=== PATIENT | male | born 1960 | race Caucasian/White ===

== ENCOUNTER 2018-02-10 19:19 | Observation (INO) ==
--- NOTE | 2018-02-10 19:28 | Emergency Department Report ---
General Adult HPI - General Stated complaint: soa, chest tightness Time Seen by Provider: 02/10/18 19:26 Source: patient Mode of arrival: ambulatory Limitations: no limitations - History of Present Illness HPI narrative: 57-year-old male presents to the emergency department with a chief complaint of feeling like his heart is fluttering in his throat. He noted onset of symptoms approximately 1.5 hours prior to arrival to the emergency department today while outside setting up a sprinkler system. He denies any true chest pain or dyspnea. He does note feeling like his heart is beating quickly. He was at home when his symptoms began. Symptoms have been persistent in nature since onset. No other complaints or associated symptoms at this time. He does not note any exacerbating or remitting factors. Patient has no personal history of cardiac issues. - Related Data Home Medications Medication Instructions Recorded Confirmed Allopurinol [Zyloprim] 300 mg PO DAILY 02/10/18 02/10/18 Ascorbic Acid [Vitamin C] 500 mg PO DAILY 02/10/18 02/10/18 Aspirin [Adult Aspirin] 81 mg PO DAILY 02/10/18 02/10/18 Garlic [Odorless Garlic] 300 mg PO DAILY 02/10/18 02/10/18 Magnesium Oxide [Magnesium] 400 mg PO DAILY 02/10/18 02/10/18 Multi-Vitamin Plain [Theragran] 1 tab PO DAILY 02/10/18 02/10/18 Biola-3/Dha/Epa/Fish Oil [Fish Oil 1 cap PO DAILY 02/10/18 02/10/18 1,000 mg Softgel] Potassium 99 mg PO DAILY 02/10/18 02/10/18 Saw Cactus 160 mg PO DAILY 02/10/18 02/10/18 Triamterene/Hydrochlorothiazid 1 cap PO DAILY 02/10/18 02/10/18 [Triamterene-Hctz 37.5-25 mg Cp] Allergies Allergy/AdvReac Type Severity Reaction Status Date / Time No Known Drug Allergies Allergy Unknown Verified 02/10/18 20:30 Review of Systems Constitutional: Denies: fever, chills Eyes: Denies: eye pain, vision change ENT: Denies: ear pain, throat pain Cardiovascular: Reports: palpitations. Denies: chest pain Respiratory: Denies: cough, dyspnea Gastrointestinal: Denies: abdominal pain, nausea, vomiting, diarrhea Genitourinary: Denies: urgency, dysuria Musculoskeletal: Denies: back pain, arthralgia Integumentary: Denies: erythema, rash Neurological: Denies: headache, numbness Psychiatric: Denies: anxiety, depression Endocrine: Denies: polydipsia, polyuria Hematological/Lymphatic: Denies: easy bleeding, easy bruising Allergic/Immunologic: Denies: facial swelling, urticaria PFSH HTN Surgical History: Colonoscopy Family History: Reviewed and Noncontributory. - Social History Smoking status: Never smoker Substance use type: does not use Alcohol intake frequency: does not drink Physical Exam - Limitations Limitations: no limitations - General General appearance: alert, in no apparent distress - Normal Exams: Head:: Normocephalic without trauma Eyes:: Pupils are PERRLA w/ EOMI, No scleral icterus, irritation, or foreign bodies noted ENMT:: No facial trauma, nasal exudates, pharyngeal erythema, or exudates are noted Dental: No fractured, loose, or missing teeth noted Neck:: Full range of motion, without adenopathy, JVD, bruits or thyromegaly Chest/Respirations:: Clear all hogan, with good airflow, and symmetry bilaterally Cardiovascular:: Regular rate and rhythm (Rate - 140 bpm. ), without murmur or gallop, Pulses 2+ all extremities, capillary refill, <2 seconds all extremities Abdomen:: Bowel sounds positive, soft, non-tender, non-distended, no hepatosplenomegaly, masses or bruits noted Lymphatic:: No lymphadenopathy, or lymphedema noted Musculoskeletal:: No tenderness, or deformity noted, good range of motion, all extremities Integumentary:: No rashes, hives, or bruising noted, hair and nails, without abnormality Neurological:: Patient is alert, and oriented, cranial nerves, motor/sensory/ cerebellar, exams w/o gross deficits, to observation Psychiatric:: Patient exhibits, appropriate attention, emotion and affect Medical Decision Making - [facility] Narrative Medical decision making narrative: Labs/imaging were discussed in detail with the patient and family and questions are answered. Patient was given 500 mL of normal saline intravenously times one. Patient was given a total of 25 mg of Cardizem intravenously times one in the emergency department and a Cardizem drip was initiated at 7.5 mg and titrated to effect. Patient was discussed in detail with Dr. Smith of cardiology who agrees to admit the patient to his service for further evaluation and treatment. Patient did take 1 baby aspirin prior to arrival to the emergency department and was given 243 mg of aspirin in the emergency department. He was given Lovenox 1 mg/kg subcutaneously the 1 in the emergency department. Patient is admitted to the CCU to the service of cardiology for further evaluation and treatment. Patient and family are in agreement with the current plan of management. No further orders from accepting physician who is in agreement with the current plan of management. - Differential Diagnosis Aflutter, Afib, Metabolic disorder, Thyroid disorder - Lab Data Result diagrams: 02/10/18 19:35 02/10/18 19:35 - Radiology Data CXR - no obvious acute processes. - EKG Data EKG #1 EKG results narrative: Atrial flutter. 144 bpm. No STEMI. Critical Care Time Critical Care Time: Yes Total Critical Care Time: 47 Attestation: 47 minutes of critical care time was assessed to the patient as the patient was initiated on an anti-arrhythmic and anti-arrhythmic drip (Cardiazem). Patient required repeated assessment at the bedside, complex medical decision making, and had potential for decompensation. Critical care time was spent treating the patient, documenting the medical record, updating family, and making telephone calls on the patient's behalf. Patient was admitted to the ICU for further evaluation and treatment. Disposition Clinical Impression: Atrial flutter Qualifiers: Atrial flutter type: unspecified Qualified Code(s): I48.92 - Unspecified atrial flutter Disposition: 02 To [facility] [place] Acute Care Condition: Stable Time of Disposition: 08:15 (Admit. Dr. Smith.) - Seen By: physician
--- OUTSIDE RECORDS SUMMARY | 2018-02-10 19:32 | External Medical Summary | Referral Summary ---
:1960 Author Organization [facility] [place] [id number] Care Team Providers Name Role Phone Andrew Marquez Primary Care Physician Encounter Date(s): 07/02/16 - 07/02/16 [facility] [place] [phone] Discharge Diagnosis: Encounter for wellness examination Discharge Diagnosis: Elevated cholesterol Discharge Diagnosis: Hypertension Discharge Diagnosis: Erectile dysfunction Discharge Diagnosis: Obesity Discharge Diagnosis: Tobacco user Discharge Diagnosis: BPH (benign prostatic hyperplasia) Discharge Disposition: 01-Home or Self Care Attending Physician: Andrew Marquez MD Admitting Physician: Andrew Marquez MD Vital Signs Most recent to oldest [Reference Range]: 1 Blood Pressure [90-140/60-90 mmHg] 140/90 mmHg (07/02/16 2:38 PM) Problem List Condition Effective Dates Status Health Status Informant Bunion, left(Confirmed) Active Elevated cholesterol(Confirmed) Active Hypertension(Confirmed) Active Erectile dysfunction(Confirmed) Active BPH (benign prostatic Active hyperplasia)(Confirmed) Obesity(Confirmed) Active patient Chronic venous Active insufficiency(Confirmed) Tobacco user(Confirmed) Active patient Vesicular foot eczema(Confirmed) Active Allergies, Adverse Reactions, Alerts No Known Medication Allergies Medications Aspirin Low Dose mg, Oral, Daily, 0 Refill(s) Start Date: 10/08/14 Status: OrderedCialis 20 mg oral tablet 20 mg 1 tabs, Oral, Daily, as needed for erectile dysfunction, # 6 tabs, 0 Refill(s), Pharmacy: [id number], 1 tabs Oral Daily,PRN:as needed for erectile dysfunction Start Date: 03/28/15 Status: Orderedtriamcinolone 0.1% topical cream 1 anibal, Topical, BID, rash, # 60 g, 1 Refill(s), Pharmacy: [facility] [id number] Start Date: 07/02/16 Status: Orderedtriamterene-hydrochlorothiazide 37.5 mg-25 mg oral tablet 1 tabs, Oral, Daily, # 90 tabs, 1 Refill(s), Pharmacy: [facility] [id number] Start Date: 07/02/16 Stop Date: 12/29/16 Status: Ordered Results Hematology Most recent to oldest [Reference Range]: 1 WBC [4.8-10.8 10*3/uL] 6.0 10*3/uL (07/02/16 3:10 PM) RBC [4.60-6.20] 4.78 (07/02/16 3:10 PM) Hgb [14.0-18.0 gm/dL] 14.3 gm/dL (07/02/16 3:10 PM) Hct [42.0-52.0 %] 42.8 % (07/02/16 3:10 PM) MCV [82.0-99.0 fL] 89.5 fL (07/02/16 3:10 PM) MCH [27.0-32.0 pg] 29.9 pg (07/02/16 3:10 PM) MCHC [32.0-36.0 gm/dL] 33.4 gm/dL (07/02/16 3:10 PM) RDW [11.5-14.5 %] 13.4 % (07/02/16 3:10 PM) Platelet [150-400 10*3/uL] 297 10*3/uL (07/02/16 3:10 PM) MPV [8.8-14.8 fL] 9.9 fL (07/02/16 3:10 PM) Immature Granulocytes [0.0-1.0 %] 0.2 % (07/02/16 3:10 PM) Neutrophils [51-75 %] 52 % (07/02/16 3:10 PM) Lymphocytes [20-46 %] 35 % (07/02/16 3:10 PM) Monocytes [4-11 %] 9 % (07/02/16 3:10 PM) Eosinophils [0-4 %] 3 % (07/02/16 3:10 PM) Basophils [0-2 %] 0 % (07/02/16 3:10 PM) Neutro Absolute [1.90-7.00 10*3] 3.13 10*3 (07/02/16 3:10 PM) Lymph Absolute [0.80-3.30 10*3] 2.10 10*3 (07/02/16 3:10 PM) [place] Absolute [0.30-1.00 10*3] 0.53 10*3 (07/02/16 3:10 PM) Eos Absolute [0.00-0.50 10*3] 0.19 10*3 (07/02/16 3:10 PM) Baso Absolute [0.00-0.20 10*3] 0.02 10*3 (07/02/16 3:10 PM) Chemistry Most recent to oldest [Reference Range]: 1 Sodium Lvl [135-144 mEq/L] 138 mEq/L (07/02/16 3:10 PM) Potassium Lvl [3.5-5.2 mEq/L] 4.0 mEq/L (07/02/16 3:10 PM) Chloride [99-111 mEq/L] 104 mEq/L (07/02/16 3:10 PM) CO2 [23-31 mEq/L] 23 mEq/L (07/02/16 3:10 PM) AGAP [3-20] 11 (07/02/16 3:10 PM) BUN [8-26 mg/dL] 17 mg/dL (07/02/16 3:10 PM) Glucose Lvl [70-99 mg/dL] 131 mg/dL *HI* (07/02/16 3:10 PM) Creatinine Lvl [0.72-1.25 mg/dL] 0.81 mg/dL (07/02/16 3:10 PM) eGFR [>60 mL/min] >60 mL/min 1 (07/02/16 3:10 PM) Calcium Lvl [8.9-10.5 mg/dL] 8.9 mg/dL (07/02/16 3:10 PM) Albumin Lvl [3.5-5.0 gm/dL] 4.1 gm/dL (07/02/16 3:10 PM) Total Protein [6.1-7.7 gm/dL] 6.9 gm/dL (07/02/16 3:10 PM) Globulin [1.8-4.0 gm/dL] 2.8 gm/dL (07/02/16 3:10 PM) ALT [0-55 U/L] 49 U/L (07/02/16 3:10 PM) AST [5-34 U/L] 38 U/L *HI* (07/02/16 3:10 PM) Alk Phos [40-150 U/L] 69 U/L (07/02/16 3:10 PM) Bili Total [0.2-1.2 mg/dL] 0.6 mg/dL (07/02/16 3:10 PM) PSA (wihout Reflex Free) [0.0-3.5 ng/mL] 1.6 ng/mL 2 (07/02/16 3:10 PM) Chol [0-199 mg/dL] 178 mg/dL (07/02/16 3:10 PM) Trig [0-149 mg/dL] 128 mg/dL (07/02/16 3:10 PM) HDL [40-84 mg/dL] 39 mg/dL *LOW* (07/02/16 3:10 PM) LDL [0-130 mg/dL] 113 mg/dL (07/02/16 3:10 PM) VLDL Cholesterol [0-28 mg/dL] 26 mg/dL (07/02/16 3:10 PM) Cardiac Risk [0.0-5.7] 4.6 (07/02/16 3:10 PM) 1Result Comment: Multiply eGFR results by 1.21 for race.2Result Comment: AUA PSA Best Practice Guidelines: Age-Adjusted PSA Values by Ethnic Group Age Range Asians - Caucasians Americans 40-49 0-2.0 0-2.0 0-2.5 50-59 0-3.0 0-4.0 0-3.5 60-69 0-4.0 0-4.5 0-4.5 70-79 0-5.0 0-5.5 0-6.5Urinalysis Most recent to oldest [Reference Range]: 1 UA Color Yellow (07/02/16 4:00 PM) UA Appear Clear (07/02/16 4:00 PM) UA pH [5.0-8.0] 6.5 (07/02/16 4:00 PM) UA Leuk Est [Negative] Negative (07/02/16 4:00 PM) UA Nitrite [Negative] Negative (07/02/16 4:00 PM) UA Protein [Negative] Negative (07/02/16 4:00 PM) UA Glucose [Negative] Negative (07/02/16 4:00 PM) UA Ketones [Negative] Trace *ABN* (07/02/16 4:00 PM) UA Urobilinogen [<1.0 mg/dL] 1.0 mg/dL (07/02/16 4:00 PM) UA Bili [Negative] Negative (07/02/16 4:00 PM) UA Blood [Negative] Negative (07/02/16 4:00 PM) UA Spec Grav [1.003-1.030] 1.018 (07/02/16 4:00 PM) Type Voided (07/02/16 4:00 PM) Immunizations Vaccine Date Refusal Reason hepatitis B pediatric vaccine 06/17/98 hepatitis B pediatric vaccine 02/09/98 influenza virus vaccine, inactivated 05/28/15 influenza virus vaccine, live 07/07/12 pneumococcal 23-polyvalent vaccine 07/07/12 zoster vaccine live 07/07/12 Procedures Procedure Date Related Diagnosis Body Site Colonoscopy and biopsy of colon1 02/01/14 Back Surgery Hernia repair 1tubular adenoma x2, sister + colon cancer, repeat in 5 years Social History Social History Type Response Smoking Status Former smoker Assessment and Plan Extracted from: Title: Office Visit Note Author: Andrew Marquez MD Date: 07/02/16 Assessment/Plan BPH (benign prostatic hyperplasia) This issue was reviewed, appears stable, and current therapy continued except as mentioned. Appropriate lab was reviewed from the most recent appropriate entry and lab was ordered if needed in the cpoe/nursing orders, and follow up recommended generally in 90 days and no later then six months. We discussed several options for treatment for this condition. The patient declined any changes or other treatments at this time. Lab pending. Elevated cholesterol This issue was reviewed, appears stable, and current therapy continued except as mentioned. Appropriate lab was reviewed from the most recent appropriate entry and lab was order ed if needed in the cpoe/nursing orders, and follow up recommended generally in 90 days and no later then six months. Lab pending. Encounter for wellness examination No forms. Erectile dysfunction We discussed several options for treatment for this condition. The patient declined any changes or other treatments at this time. Hypertension This issue was reviewed, appears stable, and current therapy continued except as mentioned. Appropriate lab was reviewed from the most recent appropriate entry and lab was ordered if ne eded in the cpoe/nursing orders, and follow up recommended generally in 90 days and no later then six months. Refill meds. Lab pending. Obesity Diet and exercise as tolerated and feasible. Consider medication when interested. Tobacco user Smoking Cessation was discussed. The patient is welcome to f/u for therapy or medication for smoking cessation at any time that they are willing to quit.
--- OUTSIDE RECORDS SUMMARY | 2018-02-10 19:32 | External Medical Summary | Referral Summary ---
:1960 Author Organization [facility] [place] [address] Care Team Providers Name Role Phone KemisundayAndrew Primary Care Physician Encounter VC Date(s): 09/11/16 - 09/11/16 [facility] [place] [phone] [place] Discharge Diagnosis: Cough Discharge Diagnosis: Acute upper respiratory infection Discharge Disposition: 01-Home or Self Care Attending Physician: Kiera Loera PA-C Admitting Physician: Kiera Loera PA-C Vital Signs Most recent to oldest [Reference Range]: 1 Peripheral Pulse Rate [60-100 bpm] 84 bpm (09/11/16 12:57 PM) Respiratory Rate [14-20 br/min] 18 br/min (09/11/16 12:57 PM) Blood Pressure [90-140/60-90 mmHg] 128/80 mmHg (09/11/16 12:57 PM) Problem List Condition Effective Dates Status [...] dysfunction, # 6 tabs, 0 Refill(s), Pharmacy: [id number], 1 tabs Oral Daily,PRN:as needed for erectile dysfunction Start Date: 03/28/15 Status: OrderedCoricidin HBP Cold & Flu tabs, Oral, q6hr, 0 Refill(s) Start Date: 09/11/16 Status: OrderedTessalon 200 mg oral capsule 200 mg 1 caps, Oral, TID, X 10 days, # 30 caps, 0 Refill(s), Pharmacy: [id number], 1caps Oral TID,x10 days Start Date: 09/11/16 Stop Date: 09/21/16 Status: Orderedtriamcinolone 0.1% topical cream 1 anibal, Topical, BID, rash, # 60 g, 1 Refill(s), Pharmacy: [facility] [id number] Start Date: 07/02/16 Status: Orderedtriamterene-hydrochlorothiazide 37.5 mg-25 mg oral tablet 1 tabs, Oral, Daily, # 90 tabs, 1 Refill(s), Pharmacy: [facility] [id number] Start Date: 07/02/16 Stop Date: 12/29/16 Status: Ordered Results No data available for this section Immunizations Given and Recorded Vaccine Date Status Refusal Reason hepatitis B pediatric vaccine 06/17/98 Given hepatitis B pediatric vaccine 02/09/98 Given influenza virus vaccine, inactivated 05/28/15 Recorded influenza virus vaccine, live 07/07/12 Given pneumococcal 13-valent conjugate vaccine1 07/07/12 Given pneumococcal 23-polyvalent vaccine 07/07/12 Given zoster vaccine live 07/07/12 Given 1Result Comment: [05/03/2015 Uncharted] Uploaded in Error - CC Procedures Procedure Date Related Diagnosis Body Site Colonoscopy and biopsy of colon1 02/01/14 Back Surgery Hernia repair 1tubular adenoma x2, sister + colon cancer, repeat in 5 years Social History Social History Type Response Smoking Status Former smoker Assessment and Plan Extracted from: Title: Office Visit Note- URI Author: Kiera Loera PA-C Date: 09/11/16 Assessment/Plan Acute upper respiratory infection Appears to be viral in nature. D/w pt to tx sx at this time. Rest and push fluids. Call or RTC if worsening. Ordered: Office Visit Level 3 Est 43941 Cough Pt cannot take anything that may make him drowsy. Will have him try Tessalon Perles during the dayto help with cough. Ordered: benzonatate, 200 mg 1 caps, Oral, TID, X 10 days, # 30 caps, 0 Refill(s), Pharmacy: [id number], 1 caps Oral TID,x10 days Office Visit Level 3 Est 24327
--- OUTSIDE RECORDS SUMMARY | 2018-02-10 19:32 | External Medical Summary | Referral Summary ---
:1960 Author Organization [facility] [place] [address] Care Team Providers Name Role Phone Andrew Marquez Primary Care Physician Encounter VC Date(s): 01/14/17 - 01/14/17 [facility] [place] [id number]- Discharge Diagnosis: Tobacco user Discharge Diagnosis: Obesity Discharge Diagnosis: BPH (benign prostatic hyperplasia) Discharge Diagnosis: Elevated cholesterol Discharge Diagnosis: Chronic venous insufficiency Discharge Diagnosis: Erectile dysfunction Discharge Diagnosis: Hypertension Discharge Diagnosis: Elevated blood sugar Discharge Disposition: 01-Home or Self Care Attending Physician: Andrew Marquez MD Admitting Physician: Andrew Marquez MD Vital Signs Most recent to oldest [Reference Range]: 1 Blood Pressure [90-140/60-90 mmHg] 140/80 mmHg (01/14/17 1:04 PM) Problem List Condition Effective Dates Status Health Status Informant Bunion, left(Confirmed) Active Elevated cholesterol(Confirmed) Active Elevated blood sugar(Confirmed) Active Hypertension(Confirmed) Active Erectile dysfunction(Confirmed) Active BPH [...] dysfunction, # 6 tabs, 0 Refill(s), Pharmacy: [id number], 1 tabs Oral Daily,PRN:as needed for erectile dysfunction Start Date: 03/28/15 Status: OrderedCoricidin HBP Cold & Flu tabs, Oral, q6hr, 0 Refill(s) Start Date: 09/11/16 Status: Orderedtriamcinolone 0.1% topical cream 1 anibal, Topical, BID, rash, # 60 g, 1 Refill(s), Pharmacy: [id number] Start Date: 07/02/16 Status: Orderedtriamterene-hydrochlorothiazide 37.5 mg-25 mg oral tablet 1 tabs, Oral, Daily, # 90 tabs, 1 Refill(s), Pharmacy: [id number] Start Date: 01/14/17 Stop Date: 07/13/17 Status: Ordered Results No data available for [...] smoker Assessment and Plan Extracted from: Title: Ambulatory Patient Education Author: Andrew Marquez MD Date: Home Health Care Diabetes and Exercise Exercising regularly is important. It is not just about losing weight. It has many health benefits, such as: Improving your overall fitness, flexibility, and endurance. Increasing your bone density. Helping with weight control. Decreasing your body fat. Increasing your muscle strength. Reducing stress and tension. Improving your overall health. People with diabetes who exercise gain additional benefits because exercise: Reduces appetite. Improves the body's use of blood sugar (glucose). Helps lower or control blood glucose. Decreases blood pressure. Helps control blood lipids (such as cholesterol and triglycerides). Improves the body's use of the hormone insulin by: Increasing the body's insulin sensitivity. Reducing the body's insulin needs. Decreases the risk for heart disease because exercising: Lowers cholesterol and triglycerides levels. Increases the levels of good cholesterol (such as high-density lipoproteins [HDL]) in the body. Lowers blood glucose levels. YOUR ACTIVITY PLAN Choose an activity that you enjoy, and set realistic goals. To exercise safely , you should begin practicing any new physical activity slowly, and gradually increase the intensity of the exercise over ti me. Your health care provider or senior health educator can help create an activity plan that works for you. General recommendations include: Encouraging children to engage in at least 60 minutes of physical activity each day. Stretching and performing strength training exercises, such as yoga or weight lifting, at least 2 times per week. Performing a total of at least 150 minutes of moderate-intensity exercise each week, such as brisk walking or water aerobics. Exercising at least 3 days per week, making sure you allow no more than 2 consecutive days to pass without exercising. Avoiding long periods of inactivity (90 minutes or more). When you have to spend an extended period of time sitting down, take frequent breaks to walk or stretch. RECOMMENDATIONS FOR EXERCISING WITH TYPE 1 OR TYPE 2 DIABETES Check your blood glucose before exercising. If blood glucose levels are greater than 240 mg/dL, check for urine ketones. Do not exercise if ketones are present. Avoid injecting insulin into areas of the body that are going to be exercised. For example, avoid injecting insulin into: The arms when playing tennis. The legs when jogging. Keep a record of: Food intake before and after you exercise. Expected peak times of insulin action. Blood glucose levels before and after you exercise. The type and amount of exercise you have done. Review your records with your health care provider. Your health care provider will help you to develop guidelines for adjusting food intake and insulin amounts before and after exercising. If you take insulin or oral hypoglycemic agents, watch for signs and symptoms of hypoglycemia. They include: Dizziness. Shaking. Sweating. Chills. Confusion. Drink plenty of water while you exercise to prevent dehydration or heat stroke. Body water is lost during exercise and must be replaced. Talk to your health care provider before starting an exercise program to make sure it is safe for you. Remember, almost any type of activity is better than none. This information is not intended to replace advice given to you by your health care provider. Make sure you discuss any questions you have with your health care provider. Document Released: 11/08/2004 Document Revised: 01/03/2016 Document Reviewed: 01/26/2014 [employer] Patient Education 2016 [employer] No follow up information was provided. Extracted from: Title: Office Visit Note Author: Andrew Maruqez MD Date: 01/14/17 Assessment/Plan BPH (benign prostatic hyperplasia) This issue [...] changes or other treatments at this time. Chronic venous insufficiency This issue was reviewed, appears stable, and current therapy continued except as mentioned. Appropriate lab was reviewed from the most recent appropriate entry and lab was ordered if needed in the c loretta/nursing orders, and follow up recommended generally in 90 days and no later then six months. Stable, no current edema. Elevated blood sugar We discussed several options for treatment for this condition. The patient declined any changes or other treatments at this time. Victoza/trulicity wheninterested. Elevated cholesterol This issue was reviewed, appears stable, and current therapy continued except as mentioned. Appropriate lab was reviewed from the most recent appropriate entry and lab was ordered if needed in the c loretta/nursing orders, and follow up recommended generally in 90 days and no later then six months. Lab stable. Erectile dysfunction This issue was reviewed, appears stable, and current therapy continued except as mentioned. Appropriate lab was reviewed from the most recent appropriate entry and lab was ordered if needed in the c loretta/nursing orders, and follow up recommended generally in 90 days and no later then six months. Hypertension The patient reports their blood pressure has been stable at home and is not having any significant or related problems. There has been no chest pain, chest pressure, soa/raygoza. Refill meds. The patient had an elevated blood pressure reading and is to monitor their bp and call with a report if consistently > 140/90. A work/school note was offered and deferred by the patient. Obesity Diet and exercise as tolerated and feasible. Consider medication when interested. We discussed several options for treatment for this condition. The patient declined any changes or other treatments at this time. Victoza/trulicity when willing. Tobacco user Smoking Cessation was discussed. The patient is welcome to f/u for therapy or medication for smoking cessation at any time that they are willing to quit.
--- OUTSIDE RECORDS SUMMARY | 2018-02-10 19:32 | External Medical Summary | Continuity of Care Document ---
:1960 Author Organization [facility] Allergies Active Description Code Type Severity Reaction Onset Reported/ Identified Relationship Clinical to Patient Status Yes No Known NKMA N/A N/A 10/08/2014 Medication Allergies Medications Medication Packaging Start Date Stop Date Route Dosage Sig 1 caps 10/08/2014 Oral triamterene-hydroc 5 1 caps, hlorothiazide(tria Oral, Daily, mterene-hydrochlor 90 caps othiazide 37.5 mg-25 mg oral capsule) 01/27/2015 triamterene-hydroc 5 See hlorothiazide(tria Instructions mterene-hydrochlor , TAKE ONE othiazide 37.5 CAPSULE BY mg-25 mg oral MOUTH ONCE capsule) DAILY, 90 caps 1 caps 03/28/2015 Oral triamterene-hydroc 6 1 caps, hlorothiazide(tria Oral, Daily, mterene-hydrochlor for 90 days, othiazide 37.5 90 caps, 1 mg-25 mg oral Refill(s) capsule) 1 tabs 03/28/2015 Oral 20 mg tadalafil(Cialis 20 mg=1 20 mg oral tablet) tabs, Oral, Daily, PRN: as needed for erectile dysfunction, 6 tabs, 0 Refill(s) 1 anibal 03/28/2015 Topical triamcinolone 6 1 anibal, topical(triamcinol Topical, one 0.1% BID, PRN: topical cream) rash, 60 g, 0 Refill(s) 1 tabs 11/21/2015 Oral triamterene-hydroc 6 1 tabs, hlorothiazide(tria Oral, Daily, mterene-hydrochlor 90 tabs, 0 othiazide 37.5 Refill(s) mg-25 mg oral tablet) 1 tabs 11/21/2015 Oral 4 mg ondansetron(Zofran 6 as needed 4 mg oral tablet) for nausea/vomit ing, # 40 tabs, 0 Refill(s), Pharmacy: [id number], 1 tabs Oral q6hr,PRN:Javon sea or Vomiting as needed for nausea/vomit ing 4 mg=1 tabs, Oral, q6hr, PRN: Nausea or Vomiting as needed for nausea/vomit ing, 40 t... 1 tabs 11/21/2015 Oral triamterene-hydroc 6 1 tabs, hlorothiazide(tria Oral, Daily, mterene-hydrochlor for 90 days, othiazide 37.5 90 tabs, 1 mg-25 mg oral Refill(s) tablet) 1 tabs 07/02/2016 Oral triamterene-hydroC 7 1 tabs, HLOROthiazide(tria Oral, Daily, mterene-hydrochlor for 90 days, othiazide 37.5 90 tabs, 1 mg-25 mg oral Refill(s) tablet) 1 anibal 07/02/2016 Topical triamcinolone 1 anibal, topical(triamcinol Topical, one 0.1% BID, PRN: topical cream) rash, 60 g, 1 Refill(s) tabs 09/11/2016 Oral acetaminophen-chlo tabs, Oral, rpheniramine(Coric q6hr, 0 idin HBP Cold Refill(s) Flu) 1 caps 09/11/2016 Oral 200 mg benzonatate(Tessal 7 200 mg=1 on 200 mg oral caps, Oral, capsule) TID, for 10 days, 30 caps, 0 Refill(s) 1 tabs 01/14/2017 Oral triamterene-hydroC 7 1 tabs, HLOROthiazide(tria Oral, Daily, mterene-hydrochlor for 90 days, othiazide 37.5 90 tabs, 1 mg-25 mg oral Refill(s) tablet) Problems Date Dx Attending Type Code Diagnosis Diagnosed By Coded 07/02/2016 [place], Final E66.9 Obesity, unspecified Andrew W 07/02/2016 [place], Final E78.0 Pure hypercholesterolemia Andrew W 07/02/2016 [place], Final I10 Essential (primary) Andrew W hypertension 07/02/2016 [place], Final N40.0 Benign prostatic Andrew Church hyperplasia without lower urinary tract symptoms 07/02/2016 [place], Final N52.9 Male erectile Andrew Church dysfunction, unspecified 07/02/2016 [place], Final Z00.00 Encounter for general Anderw Church adult medical examination without abnormal findings 07/02/2016 [place], Final Z72.0 Tobacco use Andrew Church 09/11/2016 [place], Final J06.9 Acute upper respiratory Kiera M infection, unspecified 09/11/2016 [place], Final R05 Cough Kiera M 01/14/2017 [place], Final E66.9 Obesity, unspecified Andrew Church 01/14/2017 [place], Final E78.0 Pure hypercholesterolemia Andrew Church 01/14/2017 [place], Final I10 Essential (primary) Andrew Church hypertension 01/14/2017 [place], Final I87.2 Venous insufficiency Andrew Church (chronic) (peripheral) 01/14/2017 [place], Final N40.0 Benign prostatic Andrew Church hyperplasia without lower urinary tract symptoms 01/14/2017 [place], Final N52.9 Male erectile Andrew Church dysfunction, unspecified 01/14/2017 [place], Final R73.9 Hyperglycemia, Andrew Church unspecified 01/14/2017 [place], Final Z72.0 Tobacco use Andrew Church Procedures Code Description [place] [address] Collection of 07/02/2016 venous blood by venipuncture 48181 Comprehensive 07/02/2016 metabolic panel This panel must include the following: Albumin (46071) Bilirubin, total (57396) Calcium, total (58355) Carbon dioxide (bicarbonate) (44583) Chloride (12525) Creatinine (8 90816 Lipid panel 07/02/2016 This panel must include the following: Cholesterol, serum, total (98494) Lipoprotein, direct measurement, high density cholesterol (HDL cholesterol) (52779) Triglycerides (18073)..... 17209 Urinalysis, 07/02/2016 by dip stick or tablet reagent for bilirubin, glucose, hemoglobin, ketones, leukocytes, nitrite, pH, protein, specific gravity, urobilinogen, any number of these constituents; automated, w 13006 Prostate 07/02/2016 specific antigen (PSA); total 35404 Blood count; 07/02/2016 complete (CBC), automated (Hgb, Hct, RBC, WBC and platelet count) and automated differential WBC count 47401 Office or 07/02/2016 other outpatient visit for the evaluation and management of an established patient, which requires at least 2 of these 3 lance components: An expanded problem focused history; An expanded prob 68021 Periodic 07/02/2016 comprehensive preventive medicine reevaluation and management of an individual including an age and gender appropriate history, examination, counseling/anticipatory guidance/risk factor reduc 54604 Office or 09/11/2016 other outpatient visit for the evaluation and management of an established patient, which requires at least 2 of these 3 lance components: An expanded problem focused history; An expanded prob 76745 Office or 01/14/2017 other outpatient visit for the evaluation and management of an established patient, which requires at least 2 of these 3 lance components: A detailed history; A detailed examination; Medical d Results Test Result Range CBC With Platelet and Differential - 07/02/16 15:10 Absolute Basophils 0.02 10*3 0.00-0.20 Absolute Eosinophils 0.19 10*3 0.00-0.50 Absolute Lymphocytes 2.10 10*3 0.80-3.30 Absolute Monocytes 0.53 10*3 0.30-1.00 Absolute Neutrophils 3.13 10*3 1.90-7.00 Basophils 0 % 0-2 Eosinophils 3 % 0-4 HCT 42.8 % 42.0-52.0 HGB 14.3 g/dL 14.0-18.0 Immature Granulocytes 0.2 % 0.0-1.0 Lymphocytes 35 % 20-46 MCH 29.9 pg 27.0-32.0 MCHC 33.4 g/dL 32.0-36.0 MCV 89.5 fL 82.0-99.0 Monocytes 9 % 4-11 MPV 9.9 fL 8.8-14.8 Neutrophils 52 % 51-75 Platelet Count 297 K/uL 150-400 RBC 4.78 10*6/uL 4.60-6.20 RDW 13.4 % 11.5-14.5 WBC 6.0 K/uL 4.8-10.8 eGFR - 07/02/16 15:10 eGFR >60 mL/min >60 Comprehensive Metabolic Panel (CMP) - 07/02/16 15:10 Albumin 4.1 g/dL 3.5-5.0 Alkaline Phosphatase 69 U/L 40-150 ALT (SGPT) 49 U/L 0-55 Anion Gap 11 NA 3-20 AST (SGOT) 38 U/L 5-34 Bilirubin Total 0.6 mg/dL 0.2-1.2 BUN 17 mg/dL 8-26 Calcium 8.9 mg/dL 8.9-10.5 Chloride 104 mEq/L 99-111 CO2 23 mEq/L 23-31 Creatinine 0.81 mg/dL 0.72-1.25 Globulin 2.8 g/dL 1.8-4.0 Glucose 131 mg/dL 70-99 Potassium 4.0 mEq/L 3.5-5.2 Protein 6.9 g/dL 6.1-7.7 Sodium 138 mEq/L 135-144 Lipid Panel - 07/02/16 15:10 Cardiac Risk 4.6 0.0-5.7 Cholesterol 178 mg/dL 0-199 HDL Cholesterol 39 mg/dL 40-84 LDL Cholesterol 113 mg/dL 0-130 Triglycerides 128 mg/dL 0-149 VLDL Cholesterol 26 mg/dL 0-28 PSA - 07/02/16 15:10 PSA 1.6 ng/mL 0.0-3.5 Urinalysis with reflex microscopic - 07/02/16 16:00 Appearance Clear NA Bilirubin Negative NA Negative Blood Negative NA Negative Color Yellow NA Glucose, Urine Negative Negative Ketones Trace Negative Leukocyte Esterase Negative NA Negative Nitrites Negative NA Negative pH 6.5 NA 5.0-8.0 Protein Negative Negative Specific [place] 1.018 NA 1.003-1.030 UA Collection type Voided NA Urobilinogen 1.0 mg/dL <1.0 Encounters ACCT No. Visit Discharge Status Pt. Type Provider Facility Loc./Unit Complaint Date/Time [id number] 11/09/2013 11/09/2013 [facility] 09:29:00 23:59:59 t [id number] 01/15/2017 Document 1927 05:19:27 Registrat ion [id number] 09/12/2016 Document 1711 05:17:11 Registrat ion [id number] 07/03/2016 Document 1852 05:18:52 Registrat ion [id number] 11/22/2015 Document 1749 05:17:49 Registrat ion [id number] 06/22/2015 Document 1520 13:15:20 Registrat ion [id number] 06/22/2015 Document 0257 12:02:57 Registrat ion [id number] 01/14/2017 01/14/2017 DIS Outpatien [place], [facility] 6 mo shannon 56 12:47:00 23:59:00 t Andrew Church [facility] [id number] 09/11/2016 09/11/2016 DIS Outpatien [place] [facility] Cough, 67 12:50:00 23:59:00 t Kiera fever, [facility] congestion with color [id number] 07/02/2016 07/02/2016 DIS Outpatien [place], [facility] TCPA PHY 47 14:15:00 23:59:00 t Andrew Church [facility] [id number] 11/21/2015 11/21/2015 DIS Outpatien [place], [facility] FLU LIKE 45 09:40:00 23:59:00 t Andrew Church [facility] [id number] 03/28/2015 03/28/2015 DIS Outpatien [place], [facility] phy 84 09:47:00 23:59:00 t Andrew [facility] check [id number] 10/08/2014 10/08/2014 DIS Outpatien [place], [facility] Blood 21 13:15:00 23:59:00 wing [facility] pressure Clinic recheck
--- OUTSIDE RECORDS SUMMARY | 2018-02-10 19:32 | External Medical Summary | Referral Summary ---
:1960 Author Organization [facility] [place] [id number] Care Team Providers Name Role Phone Andrew Marquez Primary Care Physician Encounter VC Date(s): 03/28/15 - 03/28/15 [facility] [place] [phone] [place] Discharge Disposition: 01-Home or Self Care Attending Physician: Andrew Marquez MD Admitting Physician: Andrew Marquez MD Vital Signs Most recent to oldest [Reference Range]: 1 Blood Pressure [90-140/60-90 mmHg] 140/100 mmHg (03/28/15 10:06 AM) Problem List Condition Effective Dates Status Health Status Informant Bunion, left(Confirmed) Active Elevated cholesterol(Confirmed) Active Hypertension(Confirmed) Active Erectile dysfunction(Confirmed) Active Obesity(Confirmed) Active patient Chronic venous Active insufficiency(Confirmed) Tobacco user(Confirmed) Active patient Vesicular foot eczema(Confirmed) Active Allergies, Adverse Reactions, Alerts No Known Medication Allergies Medications Aspirin Low Dose mg, Oral, Daily, 0 Refill(s) Start Date: 10/08/14 Status: OrderedCialis 20 mg oral tablet 20 mg 1 tabs, Oral, Daily, as needed for erectile dysfunction, # 6 tabs, 0 Refill(s), Pharmacy: [id number], 1 tabs Oral Daily,PRN:as needed for erectile dysfunction Start Date: 03/28/15 Status: Orderedtriamcinolone 0.1% topical cream 1 anibal, Topical, BID, rash, # 60 g, 0 Refill(s), Pharmacy: [id number] Start Date: 03/28/15 Status: Ordered Results Hematology Most recent to oldest [Reference Range]: 1 WBC [4.8-10.8 10*3/uL] 6.7 10*3/uL (03/28/15 10:52 AM) RBC [4.60-6.20 10*6/uL] 4.99 10*6/uL (03/28/15 10:52 AM) Hgb [14.0-18.0 gm/dL] 15.0 gm/dL (03/28/15 10:52 AM) Hct [42.0-52.0 %] 44.9 % (03/28/15 10:52 AM) MCV [82.0-99.0 fL] 90.0 fL (03/28/15 10:52 AM) MCH [27.0-32.0 pg] 30.1 pg (03/28/15 10:52 AM) MCHC [32.0-36.0 gm/dL] 33.4 gm/dL (03/28/15 10:52 AM) RDW [11.5-14.5 %] 13.4 % (03/28/15 10:52 AM) Platelet [150-400 10*3/uL] 297 10*3/uL (03/28/15 10:52 AM) MPV [8.8-14.8 fL] 9.7 fL (03/28/15 10:52 AM) Immature Granulocytes [0.0-1.0 %] 0.0 % (03/28/15 10:52 AM) Neutrophils [51-75 %] 41 % *LOW* (03/28/15 10:52 AM) Lymphocytes [20-46 %] 42 % (03/28/15 10:52 AM) Monocytes [4-11 %] 13 % *HI* (03/28/15 10:52 AM) Eosinophils [0-4 %] 3 % (03/28/15 10:52 AM) Basophils [0-2 %] 1 % (03/28/15 10:52 AM) Neutro Absolute [1.90-7.00 10*3] 2.75 10*3 (03/28/15 10:52 AM) Lymph Absolute [0.80-3.30 10*3] 2.79 10*3 (03/28/15 10:52 AM) [place] Absolute [0.30-1.00 10*3] 0.89 10*3 (03/28/15 10:52 AM) Eos Absolute [0.00-0.50 10*3] 0.23 10*3 (03/28/15 10:52 AM) Baso Absolute [0.00-0.20 10*3] 0.04 10*3 (03/28/15 10:52 AM) Chemistry Most recent to oldest [Reference Range]: 1 Sodium Lvl [135-144 mEq/L] 137 mEq/L (03/28/15 10:52 AM) Potassium Lvl [3.5-5.2 mEq/L] 4.4 mEq/L (03/28/15 10:52 AM) Chloride [99-111 mEq/L] 104 mEq/L (03/28/15 10:52 AM) CO2 [23-31 mEq/L] 25 mEq/L (03/28/15 10:52 AM) AGAP [3-20] 8 (03/28/15 10:52 AM) BUN [8-26 mg/dL] 23 mg/dL (03/28/15 10:52 AM) Glucose Lvl [70-99 mg/dL] 87 mg/dL (03/28/15 10:52 AM) Creatinine Lvl [0.72-1.25 mg/dL] 0.83 mg/dL (03/28/15 10:52 AM) eGFR [>60 mL/min] >60 mL/min 1 (03/28/15 10:52 AM) Calcium Lvl [8.9-10.5 mg/dL] 9.1 mg/dL (03/28/15 10:52 AM) Albumin Lvl [3.5-5.0 gm/dL] 4.0 gm/dL (03/28/15 10:52 AM) Total Protein [6.4-8.3 gm/dL] 7.3 gm/dL (03/28/15 10:52 AM) Globulin [1.8-4.0 gm/dL] 3.3 gm/dL (03/28/15 10:52 AM) ALT [0-55 U/L] 40 U/L (03/28/15 10:52 AM) AST [5-34 U/L] 27 U/L (03/28/15 10:52 AM) Alk Phos [40-150 U/L] 65 U/L (03/28/15 10:52 AM) Bili Total [0.2-1.2 mg/dL] 0.5 mg/dL (03/28/15 10:52 AM) Chol [0-199 mg/dL] 190 mg/dL (03/28/15 10:52 AM) Trig [0-149 mg/dL] 317 mg/dL *HI* (03/28/15 10:52 AM) HDL [40-84 mg/dL] 36 mg/dL *LOW* (03/28/15 10:52 AM) LDL [0-130 mg/dL] 91 mg/dL (03/28/15 10:52 AM) VLDL Cholesterol [0-28 mg/dL] 63 mg/dL *HI* (03/28/15 10:52 AM) Cardiac Risk [0.0-5.7] 5.3 (03/28/15 10:52 AM) 1Result Comment: Multiply eGFR results by 1.21 for race.Urinalysis Most recent to oldest [Reference Range]: 1 UA Color Yellow (03/28/15 11:00 AM) UA Appear Clear (03/28/15 11:00 AM) UA pH [5.0-8.0] 7.5 (03/28/15 11:00 AM) UA Leuk Est [Negative] Negative (03/28/15 11:00 AM) UA Nitrite [Negative] Negative (03/28/15 11:00 AM) UA Protein [Negative] Negative (03/28/15 11:00 AM) UA Glucose [Negative] Negative (03/28/15 11:00 AM) UA Ketones [Negative] Negative (03/28/15 11:00 AM) UA Urobilinogen [<1.0 mg/dL] 1.0 mg/dL (03/28/15 11:00 AM) UA Bili [Negative] Negative (03/28/15 11:00 AM) UA Blood [Negative] Negative (03/28/15 11:00 AM) UA Spec Grav [1.003-1.030] 1.020 (03/28/15 11:00 AM) Type Voided (03/28/15 11:00 AM) Immunizations Vaccine Date Refusal Reason hepatitis B pediatric vaccine 06/17/98 hepatitis B pediatric vaccine 02/09/98 influenza virus vaccine, inactivated 05/28/15 influenza virus vaccine, live 07/07/12 pneumococcal 23-polyvalent vaccine 07/07/12 zoster vaccine live 07/07/12 Procedures Procedure Date Related Diagnosis Body Site Collection of venous blood by venipuncture 03/28/15 Colonoscopy and biopsy of colon1 02/01/14 Back Surgery Hernia repair 1tubular adenoma x2, sister + colon cancer, repeat in 5 years Social History Social History Type Response Smoking Status Former smoker Assessment and Plan Extracted from: Title: Ambulatory Patient Education Author: Andrew Marquez MD Date: Family Medicine Bunion You have a bunion deformity of the feet. This is more common in women. It tends to be an inherited problem. Symptoms can include pain, swelling, and deformity around the great toe. Numbness and tingling may also be present. Your symptoms are often worsened by wearing shoes that cause pressure on the bunion. Changing the type of shoes you wear helps reduce symptoms. A wide shoe decreases pressure on th e bunion. An arch support may be used if you have flat feet. Avoid shoes with heels higher than two inches. This puts more pressure on the bunion. X-rays may be helpful in evaluating the severity of the problem. Other foot problems often seen with bunions include corns, calluses, and hammer toes. If the deformity or pain is severe, surgical treatm ent may be necessary. Keep off your painful foot as much as possible until the pain is relieved. Call your caregiver if your symptoms are worse. SEEK IMMEDIATE MEDICAL CARE IF: You have increased redness, pain, swelling, or other symptoms of infection. Document Released: 08/19/2006 Document Revised: 11/10/2012 Document Reviewed: 02/16/2008 ExitCare Patient Information 2015 [employer]. This information is not intended to replace advice given to you by your health care provider. Make sure you discuss any questions you have with your health care provider. No follow up information was provided. Extracted from: Title: Office Visit Note Author: Andrew Marquez MD Date: 03/28/15 Assessment/Plan Bunion, left To Podiatry when interested. Chronic venous insufficiency Wt loss, support hose. Monitor for ulcer. Elevated cholesterol This issue is stable and appropriate refills, lab, and f /u have been discussed. Ordered: Lipid Panel Erectile dysfunction This issue is stable and appropriate refills, lab, and f /u have been discussed. Cialis 20mg 1/2-1 po daily prn. General medical exam No forms brought. Colonoscopy utd. Hypertension This issue is stable and appropriate refills, lab, and f/u have been discussed. The patient reports their blood pressure has been stable at home and is not having any significant or related problems. There has been no chest pain, chest pressure, soa/raygoza. Monitor bp. Ordered: CBC w/ Differential Comprehensive Metabolic Panel Urinalysis with Culture if Indicated Prostate cancer screening Lab pending. Vesicular foot eczema Triamcinolone cream .1% apply bid prn. Call report.
--- OUTSIDE RECORDS SUMMARY | 2018-02-10 19:32 | External Medical Summary | Referral Summary ---
:1960 Author Organization [facility] [place] [id number] Care Team Providers Name Role Phone Andrew Marquez Primary Care Physician Encounter VC Date(s): 11/21/15 - 11/21/15 [facility] [place] [phone] [place] Discharge Disposition: 01-Home or Self Care Attending Physician: Andrew Marquez MD Admitting Physician: Andrew Marquez MD Vital Signs Most recent to oldest [Reference Range]: 1 Blood Pressure [90-140/60-90 mmHg] 150/90 mmHg *HI* (11/21/15 9:51 AM) Problem List Condition Effective Dates Status [...] dysfunction, # 6 tabs, 0 Refill(s), Pharmacy: [facility], 1 tabs Oral Daily,PRN:as needed for erectile dysfunction Start Date: 03/28/15 Status: Orderedtriamcinolone 0.1% topical cream 1 anibal, Topical, BID, rash, # 60 g, 0 Refill(s), Pharmacy: [facility] Start Date: 03/28/15 Status: Orderedtriamterene-hydrochlorothiazide 37.5 mg-25 mg oral tablet 1 tabs, Oral, Daily, # 90 tabs, 1 Refill(s), [facility] Start Date: 11/21/15 Stop Date: 05/19/16 Status: OrderedZofran 4 mg oral tablet 4 mg 1 tabs, Oral, q6hr, Nausea or Vomiting | as needed for nausea/vomiting, # 40 tabs, 0 Refill(s),[facility], 1 tabs Oral q6hr,PRN: Nausea or Vomiting | as needed for nausea/vomiting Start Date: 11/21/15 Status: Ordered Results No data available for this section Immunizations Vaccine Date Refusal Reason hepatitis B [...] Author: Andrew Marquez MD Date: Family Medicine Colitis Colitis is inflammation of the colon. Colitis can be a short-term or long- standing (chronic) illness. Crohn's disease and ulcerative colitis are 2 types of colitis which are chronic. They usually require lifelong treatment. CAUSES There are many different causes of colitis, including: Viruses. Germs (bacteria). Medicine reactions. SYMPTOMS Diarrhea. Intestinal bleeding. Pain. Fever. Throwing up (vomiting). Tiredness (fatigue). Weight loss. Bowel blockage. DIAGNOSIS The diagnosis of colitis is based on examination and stool or blood tests. X- rays, CT scan, and colonoscopy may also be needed. TREATMENT Treatment may include: Fluids given through the vein (intravenously). Bowel rest (nothing to eat or drink for a period of time). Medicine for pain and diarrhea. Medicines (antibiotics) that kill germs. Cortisone medicines. Surgery. HOME CARE INSTRUCTIONS Get plenty of rest. Drink enough water and fluids to keep your urine clear or pale yellow. Eat a well-balanced diet. Call your caregiver for follow-up as recommended. SEEK IMMEDIATE MEDICAL CARE IF: You develop chills. You have an oral temperature above 102 F (38.9 C), not controlled by medicine. You have extreme weakness, fainting, or dehydration. You have repeated vomiting. You develop severe belly (abdominal) pain or are passing bloody or tarry stools. MAKE SURE YOU: Understand these instructions. Will watch your condition. Will get help right away if you are not doing well or get worse. This information is not intended to replace advice given to you by your health care provider. Make sure you discuss any questions you have with your health care provider. Document Released: 09/26/2005 Document Revised: 11/10/2012 Document Reviewed: 12/22/2010 ExitCare Patient Information 2015 [employer]. No follow up information was provided. Extracted from: Title: Office Visit Note Author: Andrew Marquez MD Date: 11/21/15 Assessment/Plan Acute diarrhea Imodium otc prn. Much improved now. RTW note given. Acute gastroenteritis Zofran 4mg po qid prn. RTW note given. RTC if not resolvedsoon. Elevated cholesterol This issue was reviewed, appears stable, and current therapy continued except as mentioned. Appropriate lab was reviewed from the most recent appropriate entry and lab was order ed if needed in the cpoe/nursing orders, and follow up recommended generally in 90 days and no later then six months. Lab stable. Declines lab today. Hypertension Resume triam/hctz 37.5/25mgone tab daily. The patient had an elevated blood pressure reading and is to monitor their bp and call with a report if consistently > 140/90. Lab recommended and declined for now. Obesity Diet and exercise as tolerated and feasible. Consider medication when interested."
[2018-02-10] MEDS ORDERED: DiltiaZEM 25 MG/5 ML INJECTION IVP ONE ×2 (19:37→20:06)
[2018-02-10] MEDS: SALINE FLUSH 10ml SYRINGE IVF PRN ×3 (19:43→21:31)
[2018-02-10] MEDS ORDERED: DiltiaZEM Drip 125 MG in NS 125 ML IV SCH (19:45)
[2018-02-10] MEDS ORDERED: ENOXAPARIN 120 MG/0.8 ML INJECTION SQ ONE (20:14)
[2018-02-10 21:03] VITALS: BMI 35.0
[2018-02-10] MEDS ORDERED: ACETAMINOPHEN 500 MG TABLET PO PRN (21:28)
[2018-02-10] MEDS: METOPROLOL 5mg/5ml INJECTION IVP SCH ×2 (21:31→22:03)
[2018-02-11] MEDS ORDERED: METOPROLOL 5mg/5ml INJECTION IVP PRN (06:51)
--- NOTE | 2018-02-11 08:18 | XRay Report ---
Indication: tachycardia PROCEDURE: XR chest 1V: Encounter: Initial Comparison: None FINDINGS: The lungs are clear. There is no abnormal airspace opacity, pleural effusion or pneumothorax identified. The heart size, pulmonary vasculature and mediastinum are within normal limits. No significant skeletal abnormality is seen. IMPRESSION: No acute cardiopulmonary abnormality. .
[2018-02-11] MEDS ORDERED: TRIAMTERENE/HCTZ 37.5 MG-25 MG TABLET PO SCH (09:00)
[2018-02-11] MEDS ORDERED: ASPIRIN *EC* 81 MG TABLET PO SCH (09:00)
[2018-02-11] MEDS ORDERED: MAGNESIUM OXIDE 400 MG TABLET PO SCH (09:00)
[2018-02-11] MEDS ORDERED: ALLOPURINOL 300 MG TABLET PO SCH (09:00)
--- NOTE | 2018-02-11 09:36 | Cardiology History & Physical ---
History of Present Illness Chief complaint: palpitations HPI: Conor is a 57-year-old male with a history of HTN who presented to the ED complaining of feeling like his heart is fluttering in his throat. He noted onset of symptoms approximately 6pm last evening while outside setting up a sprRethinkDBler system. He denied chest pain or dyspnea. EKG revealed Atrial flutter , with RVR, HR 143. Dr. Smith was contacted and he was admitted to CCU for further evaluation and treatment of A Flutter. He was given 25mg IV Cardizem and drip started but rate remained elevated. Metoprolol 5mg IV X 2 was given to slow rate. He is seen in CCU this morning where he is currently in SR, HR 50s. He denies chest pain, pressure, tightness, dyspnea, dizziness, nausea. Review of Systems - Constitutional Constitutional: Absent: chills, fatigue, fever(s) - EENMT Eyes: Absent: change in vision Balance: Absent: vertigo Mouth/Throat: Absent: sore throat - Cardiovascular Cardiovascular: Present: palpitations. Absent: chest pain, syncope, dyspnea on exertion, orthopnea, edema, heart murmur Rhythm: Absent: abnormal rhythm Vascular: Absent: pedal edema - Respiratory Respiratory: Absent: cough, dyspnea, dyspnea on exertion - Gastrointestinal Gastrointestinal: Absent: abdominal pain, constipation, diarrhea, nausea, vomiting - Genitourinary Genitourinary: Absent: dysuria - Neurological Neurological: Absent: dizziness - Endocrine Endocrine: Present: palpitations PFSH Patient Stated Medical History Hypertension Yes Other Musculoskeletal Yes: GOUT Surgical History: Colonoscopy Family History: Father - [place], cause of -age 60 Mother - [place], CHF, cause of -age 74 - Social History Smoking status: Never smoker Substance use type: does not use Alcohol intake frequency: does not drink Household members: significant other Current occupational status: employed Current occupation: trucking manager Does patient use chewing tobacco?: No Current residence: Apartment/Private Home Medications Home Medications Medication Instructions Recorded Confirmed Type Allopurinol [Zyloprim] 300 mg PO DAILY 02/10/18 02/10/18 History Ascorbic Acid [Vitamin C] 500 mg PO DAILY 02/10/18 02/10/18 History Aspirin [Adult Aspirin] 81 mg PO DAILY 02/10/18 02/10/18 History Garlic [Odorless Garlic] 300 mg PO DAILY 02/10/18 02/10/18 History Magnesium Oxide [Magnesium] 400 mg PO DAILY 02/10/18 02/10/18 History Multi-Vitamin Plain [Theragran] 1 tab PO DAILY 02/10/18 02/10/18 History [place]perance-3/Dha/Epa/Fish Oil [Fish Oil 1 cap PO DAILY 02/10/18 02/10/18 History 1,000 mg Softgel] Potassium 99 mg PO DAILY 02/10/18 02/10/18 History Saw [place] 160 mg PO DAILY 02/10/18 02/10/18 History Triamterene/Hydrochlorothiazid 1 cap PO DAILY 02/10/18 02/10/18 History [Triamterene-Hctz 37.5-25 mg Cp] Allergies Allergy/AdvReac Type Severity Reaction Status Date / Time No Known Drug Allergies Allergy Unknown Verified 02/10/18 20:30 Exam Vital signs: Temperature 98.8 F 02/10/18 19:21 Pulse Rate 53 L 02/11/18 05:00 Respiratory Rate 10 02/11/18 05:00 Blood Pressure 119/77 02/11/18 05:00 Pulse Oximetry 99 02/11/18 05:00 - Constitutional no acute distress, well nourished, cooperative - Routine HEENT Exam Head: Present: normocephalic ENT: Present: mucous membranes moist - Routine Neck Exam Absent: JVD, carotid bruit - Routine Chest/Breast/Axilla Exam Chest wall: Absent: tenderness - Routine Respiratory Exam Present: CTA bilaterally. Absent: dyspnea, rales, wheezes - Routine Cardiovascular Exam Present: RRR, no murmur, bradycardia - Routine Abdominal Exam Present: soft, non tender - Routine Extremities Exam Present: no edema - Routine Skin Exam Present: intact, dry, warm - Routine Neurological Exam Present: alert, oriented X3 - Routine Psychiatric Exam Present: normal affect, normal thought process Results 02/11/18 07:52 02/11/18 07:52 Cardiac Enzymes 02/11/18 Range/Units 07:52 Troponin I < 0.012 (0-0.12) ng/ml CBC 02/11/18 Range/Units 07:52 WBC 7.9 (4.5-11.0) T/MM3 RBC 4.59 (4.50-5.90) M/MM3 Hgb 14.3 (13.5-17.5) GM/DL Hct 42.4 (41-53) % Plt Count 230 (130-400) T/MM3 Neut # (Auto) 4.7 (1.8-7.7) T/MM3 Lymph # (Auto) 2.2 (1-4.8) T/MM3 [place] # (Auto) 0.7 (0-0.8) T/MM3 Eos # (Auto) 0.3 (0-0.5) T/MM3 Baso # (Auto) 0.0 (0-0.2) T/MM3 Comprehensive Metabolic Panel 02/11/18 Range/Units 07:52 Sodium 145 (136-146) MEQ/L Potassium 4.1 (3.6-5) MEQ/L Chloride 108 H (98-107) MEQ/L Carbon Dioxide 27 (22-30) MEQ/L BUN 22.0 H (9-20) MG/DL Creatinine 0.7 L (0.8-1.5) mg/dL Glucose 92 (75-110) MG/DL Calcium 8.8 (8.4-10.2) MG/DL Intake and Output 02/10/18 02/11/18 02/11/18 22:59 06:59 14:59 Intake Total 171.329 / 538.126 Balance 171.329 / 538.126 Intake: IV 171.329 / 538.126 DiltiaZEM Drip 125 mg In Ns 125 37.959 / 38.126 ml @ 5 mls/hr IV .Q24H [facility] Rx# :[id number] NS 500ml 500 ml @ 999.9 mls/hr 133.37 / 500.00 IV .Q30M ONE Rx#:[id number] Other: # Voids 1 1 Weight 265 lb 14.04 oz - Imaging and Cardiology Echo: pending Imaging & Cardiology Narrative: Date of Exam: 02/10/18 Ordering Provider: Mukesh Stovall DO Type of Exam(s): XR chest 1V Reason for Exam(s): tachycardia Indication: tachycardia PROCEDURE: XR chest 1V: Encounter: Initial Comparison: None FINDINGS: The lungs are clear. There is no abnormal airspace opacity, pleural effusion or pneumothorax identified. The heart size, pulmonary vasculature and mediastinum are within normal limits. No significant skeletal abnormality is seen. IMPRESSION: No acute cardiopulmonary abnormality. 02/11/18 11:30 EKG interpretations - EKG EKG results cardiology: sinus rhythm Hospital Course This is a general summary of the patient's hospital course. For more details refer to the complete medical record. Time spent with patient: 25 - 35 minutes Resuscitation Status: Full Code Assessment and Plan - Attestation Attestation Narrative: 02/13/18 12:02 Recommendation After examining the patient I agree with the above assessment. I am involved in the formulation of the patient's plan of care. - Assessment and Plan (1) Atrial flutter Status: Acute Admit to CCU - Given 25mg IV Cardizem and drip - Metoprolol 5mg IV X 2 to slow rate. - Converted to SR at 2246 - Currently in SR, HR 50s. - 2d echo pending - TSH elevated 5.42 - mag normal - Chads score is 1, takes Aspirin 81mg daily (2) Essential (primary) hypertension Status: Chronic well controlled on current therapy, continue current therapy
--- NOTE | 2018-02-11 10:18 | Work/School Release ---
Work/School Release - Date Date: 02/11/18 - Work Release Remain off work/school for:: the remainder of this week Excused for:: recent hospitalization May return to work on:: 02/17/18 Restrictions:: none May resume normal activity on:: 02/17/18
[2018-02-11 10:54] VITALS: TEMP 98.7
--- NOTE | 2018-02-11 14:46 | Discharge Summary ---
<Cassidy Odonnell - Last Filed: 02/11/18 14:43> Discharge Information Date of admission: 02/10/18 20:10 Anticipated date of discharge: 02/11/18 Attending Physician: Kobe Smith MD Primary care physician: Andrew Marquez MD - Discharge Diagnosis (1) Atrial flutter Status: Acute (2) Essential (primary) hypertension Status: Chronic Atrial flutter - Laboratory Labs: 02/11/18 07:52 02/11/18 07:52 History of Present Illness HPI: Conor is a 57-year-old male with a history of HTN who presented to the ED complaining of feeling like his heart is fluttering in his throat. 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 He denied chest pain or dyspnea. EKG revealed Atrial flutter , with RVR, HR 143. Dr. Smith was contacted and he was admitted to CCU for further evaluation and treatment of A Flutter. He was given 25mg IV Cardizem and drip started but rate remained elevated. Metoprolol 5mg IV X 2 was given to slow rate. He is seen in CCU this morning where he is currently in SR, HR 50s. He denies chest pain, pressure, tightness, dyspnea, dizziness, nausea. Hospital Course This is a general summary of the patient's hospital course. For more details refer to the complete medical record. Time spent with patient: 25 - 35 minutes Resuscitation Status: Full Code Exam Vital signs: Temperature 98.7 F 02/11/18 07:30 Pulse Rate 58 L 02/11/18 12:00 Respiratory Rate 18 02/11/18 10:45 Blood Pressure 168/80 H 02/11/18 10:01 Pulse Oximetry 100 02/11/18 10:45 - Constitutional no acute distress, well nourished, cooperative - Routine HEENT Exam Head: Present: normocephalic ENT: Present: mucous membranes moist - Routine Neck Exam Absent: JVD, carotid bruit - Routine Chest/Breast/Axilla Exam Chest wall: Absent: tenderness - Routine Respiratory Exam Present: CTA bilaterally. Absent: dyspnea, rales, wheezes - Routine Cardiovascular Exam Present: RRR, no murmur, bradycardia - Routine Abdominal Exam Present: soft, non tender - Routine Extremities Exam Present: no edema - Routine Skin Exam Present: intact, dry, warm - Routine Neurological Exam Present: alert, oriented X3 - Routine Psychiatric Exam Present: normal affect, normal thought process Results 02/11/18 07:52 02/11/18 07:52 Cardiac Enzymes 02/11/18 Range/Units 07:52 Troponin I < 0.012 (0-0.12) ng/ml CBC 02/11/18 Range/Units 07:52 WBC 7.9 (4.5-11.0) T/MM3 RBC 4.59 (4.50-5.90) M/MM3 Hgb 14.3 (13.5-17.5) GM/DL Hct 42.4 (41-53) % Plt Count 230 (130-400) T/MM3 Neut # (Auto) 4.7 (1.8-7.7) T/MM3 Lymph # (Auto) 2.2 (1-4.8) T/MM3 [place] # (Auto) 0.7 (0-0.8) T/MM3 Eos # (Auto) 0.3 (0-0.5) T/MM3 Baso # (Auto) 0.0 (0-0.2) T/MM3 Comprehensive Metabolic Panel 02/11/18 Range/Units 07:52 Sodium 145 (136-146) MEQ/L Potassium 4.1 (3.6-5) MEQ/L Chloride 108 H (98-107) MEQ/L Carbon Dioxide 27 (22-30) MEQ/L BUN 22.0 H (9-20) MG/DL Creatinine 0.7 L (0.8-1.5) mg/dL Glucose 92 (75-110) MG/DL Calcium 8.8 (8.4-10.2) MG/DL Intake and Output 02/10/18 02/11/18 02/11/18 22:59 06:59 14:59 Intake Total 171.329 / 538.126 300 / 300 Output Total 1100 / 1100 Balance 171.329 / 538.126 -800 / -800 Intake: IV 171.329 / 538.126 DiltiaZEM Drip 125 mg In Ns 125 37.959 / 38.126 ml @ 5 mls/hr IV .Q24H BIJU Rx# :[id number] NS 500ml 500 ml @ 999.9 mls/hr 133.37 / 500.00 IV .Q30M ONE Rx#:[id number] Oral 300 / 300 Output: Urine 1100 / 1100 Other: Urine Appearance Clear Urine Color Light Dori # Voids 1 1 Weight 265 lb 14.04 oz 264 lb 15.93 oz Patient Weight 02/12/18 06:59 Weight 264 lb 15.93 oz - Imaging and Cardiology Imaging & Cardiology Narrative: Date of Exam: 02/10/18 Ordering Provider: Mukesh Stovall DO Type of Exam(s): XR chest 1V Reason for Exam(s): tachycardia Indication: tachycardia PROCEDURE: XR chest 1V: Encounter: Initial Comparison: None FINDINGS: The lungs are clear. There is no abnormal airspace opacity, pleural effusion or pneumothorax identified. The heart size, pulmonary vasculature and mediastinum are within normal limits. No significant skeletal abnormality is seen. IMPRESSION: No acute cardiopulmonary abnormality. 02/11/18 14:43 Discharge Plan - Med Rec/Dispo Referrals/Follow Up: Kobe Smith MD [Physician] [facility] Instructions: Atrial Flutter (DC), A-fib (Atrial Fibrillation) (DC) Prescriptions: Continue Potassium 99 mg PO DAILY Magnesium Oxide [Magnesium] 400 mg PO DAILY Saw [place] 160 mg PO DAILY Multi-Vitamin Plain [Theragran] 1 tab PO DAILY Triamterene/Hydrochlorothiazid [Triamterene-Hctz 37.5-25 mg Cp] 1 cap PO DAILY Aspirin [Adult Aspirin] 81 mg PO DAILY Allopurinol [Zyloprim] 300 mg PO DAILY Pearson-3/Dha/Epa/Fish Oil [Fish Oil 1,000 mg Softgel] 1 cap PO DAILY Ascorbic Acid [Vitamin C] 500 mg PO DAILY Garlic [Odorless Garlic] 300 mg PO DAILY - Disposition 01 Discharged Home, Self-Care - Dismissal Complete Discharge Instructions are:: Complete <Kobe Smith - Last Filed: 02/13/18 12:03> Discharge Information Date of admission: 02/10/18 20:10 Attending Physician: Kobe Smith MD Primary care physician: Andrew Marquez MD - Discharge Diagnosis (1) Atrial flutter Status: Acute (2) Essential (primary) hypertension Status: Chronic - Laboratory Labs: 02/11/18 07:52 02/11/18 07:52 Hospital Course This is a general summary of the patient's hospital course. For more details refer to the complete medical record. Exam Vital signs: Temperature 98.7 F 02/11/18 12:00 Pulse Rate 64 02/11/18 15:30 Respiratory Rate 26 H 02/11/18 15:30 Blood Pressure 117/63 02/11/18 15:00 Pulse Oximetry 96 02/11/18 15:30 Results 02/11/18 07:52 02/11/18 07:52 Attestation Narriative - Attestation Attestation Narrative: 02/13/18 12:03 Recommendation After examining the patient I agree with the above assessment. I am involved in the formulation of the patient's plan of care.
--- NOTE | 2018-02-11 15:55 | Echocardiogram ---
DATE OF PROCEDURE February 11, 2018 This is a two-dimensional echo with spectral Doppler, color-flow and M-mode. It was obtained in a patient with atrial fibrillation. Left atrium is dilated. Left ventricle end-diastolic dimension is normal. Left ventricle wall thickness is normal. LV systolic function is normal with ejection fraction of 60%. Right atrium is normal. Right ventricle is normal. Aortic root dimension is normal. Mitral valve is morphologically normal with trace of mitral regurgitation. Aortic valve appears to be normal. Tricuspid valve shows trace of tricuspid regurgitation with mild pulmonary hypertension with estimated pulmonary artery systolic pressure of 36. Pulmonary valve shows no pulmonary insufficiency. There is no pericardial effusion. IMPRESSION 1. Normal LV systolic function with ejection fraction of about 60%. 2. Left atrial dilation. 3. Trace of mitral regurgitation. 4. Trace of tricuspid regurgitation with mild pulmonary hypertension with estimated pulmonary artery systolic pressure of 36. MTDD
[2018-02-11 15:58] VITALS: BP 117/63; PULSE 64; RESP 26; O2SAT 96
== END 2018-02-11 15:55 | disposition home or self-care (01) ==
LOC: ED 19:19 → EDHOLD 20:10 → INTOOBSV 20:10 → CCU 20:50
PROVIDERS: ADMIT Internal Medicine Cardiovascular Disease; ATTEND Internal Medicine Cardiovascular Disease